=== PATIENT | female | born 1940 | race Caucasian/White ===

== ENCOUNTER → 2016-12-18 | Outpatient (CLI) | payer MEDICARE, OTHER ==
[~2016-12-18] MED LIST: ADVAIR 250-501 EAC1 INH; ALBUTEROL PO; ALPRAZOLAM PO; ALPRAZOLAM0.5 MG PO; AMOXICILLIN PO; ASPIRIN PO; B COMPLEX1 CA1 PO; BUSPAR PO; BUSPIRONE HCL10 MG PO; CALTRATE 600+D PO; CENTRUM PO; CIPRO250 MG PO; COD LIVER OIL1 CAP PO; COMBIVENT MININEB INH; COMBIVENT U/D3 M2 INH; COUMADIN PO; DARVOCET-N 1001 TAB PO; DICYCLOMINE HCL20 MG PO; EQUATE ALLERGY RELIE; EQUATE PM; FISH OIL 1,0001 CA2 PO; FLOMAX0.4 M1 PO; FLONASE 0.05% N16 G1; FLONASE 0.05% N16 GM; IBUPROFEN PO; LEVAQUIN250 MG PO; LOMOTIL TABLET1 TAB PO; LORATADINE PO; LORTAB 5/500 TA1 TA1 PO; LOVASTATIN20 MG PO; MAIL ORDER PHARMACY; NAPROXEN; NAPROXEN PO; NEPHROCAPS CAPSU1 MG PO; NEURONTIN PO; NITROGYLCERIN SUBLINGUAL; PATIENT'S PHARMACY; PERCOCET10 PO; PHENERGAN PO; PHENOL-SODIUM180 M1 MT; PREDNISONE PO; PRILOSEC PO; PROZAC PO; PYRIDIUM PO; RHINOCORT AQUA8.6 GM; VIT E PO; VITAMIN B12; VITAMIN B12-FO1 EACH PO; VITAMIN C PO; VITAMIN D 4001 UDTAB PO; VITAMIN D31000 UNIT PO; VITAMIN E400 UNI2 PO; ZOFRAN PO; [UNRECOGNIZED DRUG - REMARK]
--- NOTE | ~2016-12-18 | US37 ---
[facility] A Service of [facility] & [facility] RADIOLOGY TEXT RESULTS PATIENT: SHORTY GONZALES LOCATION: SNIV : 40 UNIT #: [id number] AGE: [address]: Kennedy Hicks MD SEX: F ORDER DR: [id number] [address] [address] [id number] O MR#: [id number] Acc #: [id number] NAME: SHORTY GONZALES : 1940 SEX: F STUDY DATE/TIME: 12/18/2016 14:45 UNIT: SNIV ROOM: STUDY DESCRIPTION: US Carotid W/Doppler Bilateral Attending Physician: Kennedy Hicks M.D. Referring Physician: Kennedy Hicks M.D. Ordering Physician: Kennedy Hicks M.D. Primary Care Physician: Kennedy Hicks M.D. MEDICAL IMAGING REPORT This report is preliminary unless electronic signature is present. EXAM Carotid Doppler bilateral 12/18/2016 HISTORY Dizziness for 3 months and confusion and memory loss, loss of balance and coordination and slurred speech. Evaluate for carotid stenosis. FINDINGS Elizabeth-scale carotid artery images were obtained as well as Doppler waveform spectral analysis and color flow Doppler imaging. The examination was interpreted according to NASCET criteria. There is no hemodynamically significant stenosis in either carotid artery. Peak systolic velocity in the right and left internal carotid arteries was 58 cm/sec and 63 cm/sec respectively. Antegrade blood flow is seen in both vertebral arteries. There is mild plaque bilaterally. IMPRESSION No hemodynamically significant stenosis in either carotid artery. Dictated by... Ishmael Hook M.D. THIS IS AN ELECTRONICALLY VERIFIED REPORT Ishmael Hook M.D. at 12/19/2016 2:12 PM BELINDA/gianna TD: 12/19/2016 06:42 JOB #: [id number] MEDICAL IMAGING REPORT Page 1 of 1
== END | disposition home or self-care (01) ==
LOC: SNIV 14:29
DX: R42 Dizziness and giddiness (principal)
CPT/HCPCS: 93880